=== PATIENT | male | born 1955 | race Caucasian/White ===

== ENCOUNTER 2017-01-31 08:00 | Outpatient (CLI) | payer OTHER ==
[2017-01-31 10:13] LABS: BASOPHILS # (AUTO) 0.1 10^3/uL (0.0-0.1); BASOPHILS % (AUTO) 0.9 %; EOSINOPHILS # (AUTO) 0.1 10^3/uL (0.0-0.7); EOSINOPHILS % (AUTO) 2.3 %; HCT - HEMATOCRIT 42.2 % (42.0-52.0); HGB - HEMOGLOBIN 14.8 g/dL (14.0-18.0); LYMPHOCYTES # (AUTO) 2.2 10^3/uL (1.5-3.5); LYMPHOCYTES % (AUTO) 39.6 %; MEAN CORPUSCULAR HEMOGLOBIN 35.1 pg (27.0-31.0); MEAN CORPUSCULAR HGB CONC 35.2 g/dL (32.0-36.0); MEAN CORPUSCULAR VOLUME 99.8 fL (80.0-94.0); MONOCYTES # (AUTO) 0.5 10^3/uL (0.0-1.0); MONOCYTES % (AUTO) 9.6 %; NEUTROPHILS # (AUTO) 2.7 10^3/uL (1.5-6.6); NEUTROPHILS % (AUTO) 47.6 %; NUCLEATED RED BLOOD CELLS AUTO 0.1 /100WBC; RED BLOOD COUNT 4.22 10^6/uL (4.70-6.10); RED CELL DISTRIBUTION WIDTH 12.5 % (12.0-15.0); UNCORRECTED WHITE BLOOD COUNT 5.6 x10^3/uL; WHITE BLOOD COUNT 5.6 x10^3/uL (4.8-10.8)
== END 2017-01-31 23:59 | disposition home or self-care (01) ==
LOC: LAB 08:00
PROVIDERS: ATTEND Registered Nurse
DX: Z01.812 Encounter for preprocedural laboratory examination (principal); K40.90 Unilateral inguinal hernia, without obstruction or gangrene, not specified as recurrent
CPT/HCPCS: 36415; 85025; 85730

== ENCOUNTER 2017-02-04 11:07 | Day surgery (SDC) | payer OTHER ==
[~2017-02-04 11:07] MED LIST: ceFAZolin 2 GM/50 ML 50 ML IV ONE
[2017-02-04] MEDS ORDERED: LACTATED RINGERS 1,000 ML IV ONE ×2 (11:27→15:44)
[2017-02-04] MEDS ORDERED: BUPIVACAINE 0.5% PF 30 ML VIAL INFIL ONE ×2 (15:43)
[2017-02-04] MEDS ORDERED: KETOROLAC 30 MG/ML VIAL IVP ONE (16:00)
[2017-02-04] MEDS ORDERED: PROPOFOL 200 MG/20 ML VIAL IVP ONE (16:00)
[2017-02-04] MEDS ORDERED: ONDANSETRON 4 MG/2 ML VIAL IVP ONE (16:00)
[2017-02-04] MEDS ORDERED: MIDAZOLAM 2 MG/2 ML VIAL IVP ONE (16:00)
[2017-02-04] MEDS ORDERED: DEXAMETHASONE 4 MG/ML VIAL IVP ONE (16:00)
[2017-02-04] MEDS ORDERED: LIDOCAINE-MPF 2% 5 ML VIAL IM ONE (16:00)
[2017-02-04] MEDS ORDERED: ACETAMINOPHEN 1,000 MG/100 ML VIAL IV ONE (16:00)
[2017-02-04] MEDS ORDERED: fentaNYL 100 MCG/2 ML VIAL IVP ONE (16:00)
== END 2017-02-04 11:08 | disposition home or self-care (01) ==
PROC: 0YU50JZ Supplement Right Inguinal Region with Synthetic Substitute, Open Approach (ICD-10-PCS; principal; 2017-02-04 12:30)
DX: K40.90 Unilateral inguinal hernia, without obstruction or gangrene, not specified as recurrent (principal); I11.0 Hypertensive heart disease with heart failure; I50.9 Heart failure, unspecified; F17.210 Nicotine dependence, cigarettes, uncomplicated
CPT/HCPCS: 36415; 49505; 85025; 85730; C1781; J0131; J0690; J7120

== ENCOUNTER 2017-08-30 12:09 | Emergency (ER) | payer OTHER ==
[2017-08-30 12:22] VITALS: BP 150/99
[2017-08-30] MEDS ORDERED: DEXAMETHASONE 10 MG/ML VIAL PO STA (13:47)
--- NOTE | 2017-08-30 13:50 | ED Physician Documentation ---
PD HPI UPPER EXT INJURY - Stated complaint Stated Complaint: L ARM PX - Chief complaint Chief Complaint: Ext Problem - History obtained from History obtained from: Patient - History of Present Illness Location: Left, Elbow Type of injury: Fall Where injury occurred: Home Timing - onset: Yesterday Timing - duration: Days (1) Timing - details: Abrupt onset, Still present Improved by: Rest, Ice, Immobilization Worsened by: Moving, Palpating Associated symptoms: No: Weakness, Numbness, Tingling, Swelling Contributing factors: Anticoagulated Similar symptoms before: Has not had sx before Recently seen: Not recently seen - Additonal information Additional information: 62-year-old male with history of congestive heart failure on Pradaxa was getting out of his car yesterday when he slipped on the ice fell directly onto his buttocks and both of his elbows. He has some pain in his lower back that is consistent with his sciatica and he has been having trouble with this for the past 2 weeks and the back is now slightly more painful than usual. His most significant area of pain is the left elbow he has some restriction in the range of motion to it secondary to pain. The pain is mostly centered over the proximal ulna. Review of Systems Constitutional: denies: Fever Eyes: denies: Decreased vision Respiratory: denies: Cough GI: denies: Abdominal Pain, Nausea, Vomiting, Constipation, Diarrhea Musculoskeletal: reports: Back pain, Extremity pain, Joint pain, Joint swelling. denies: Neck pain PD PAST MEDICAL HISTORY - Past Medical History Past Medical History: Yes Cardiovascular: Congestive heart failure, Hypertension, Other Respiratory: None GI: None, GERD : Benign prostate hypertrophy, Kidney stones HEENT: None Psych: None Musculoskeletal: None Derm: None - Past Surgical History Past Surgical History: Yes General: Colonoscopy Ortho: Other Neuro: Other HEENT: Cataracts - Present Medications Home Medications: Ambulatory Orders Medication Instructions Recorded Confirmed Amitriptyline HCl 75 mg PO DAILY 01/31/17 08/30/17 Dabigatran Etexilate Mesylate 150 mg PO BID 01/31/17 08/30/17 [Pradaxa] Metoprolol Succinate 25 mg PO BID 01/31/17 08/30/17 Valsartan 40 mg PO BID 01/31/17 08/30/17 Cyclobenzaprine [Flexeril] 10 mg PO .FEQ PRN 08/30/17 08/30/17 - Allergies Allergies/Adverse Reactions: Allergies Allergy/AdvReac Type Severity Reaction Status Date / Time lisinopril AdvReac Itching Verified 08/30/17 12:22 - Social History Does the pt smoke?: Yes Smoking Status: Current every day smoker Does the pt drink ETOH?: Yes ETOH Use: Beer Does the pt have substance abuse?: No - Immunizations Immunizations are current?: No Immunizations: TDAP >10years/unknown - POLST Patient has POLST: No PD ED PE NORMAL - Vitals Vital signs reviewed: Yes (hypertensive ) - General General: Alert and oriented X 3, No acute distress, Well developed/nourished - HEENT HEENT: Atraumatic, PERRL, EOMI - Neck Neck: Supple, no meningeal sign - Respiratory Respiratory: No respiratory distress - Back Back: No CVA TTP, No spinal TTP, Other (There is some bilateral lower lumbar paraspinous muscle spasm and tenderness. ) - Derm Derm: Normal color, Warm and dry, No rash - Extremities Extremities: No deformity, Other (There is specific point tenderness to the left olecrenon. There is restricted ROM specifically with full flexion.Extension is with less pain and he is able to supinate and pronate without pain with the elbow extended and he has pain radiating down the radius with supination/pronation with the elbow flexed. ) - Neuro Neuro: No motor deficit, No sensory deficit Eye Opening: Spontaneous Motor: Obeys Commands Verbal: Oriented GCS Score: 15 - Psych Psych: Normal mood, Normal affect Results - Vitals Vitals: Vital Signs - 24 hr 08/30/17 12:20 Temperature 36.1 C L Heart Rate 76 Respiratory 18 Rate Blood Pressure 150/99 H O2 Saturation 100 Oxygen O2 Source Room air - Rads (name of study) Left elbow Radiology: Prelim report reviewed (Impression: 1. Normal alignment of the elbow without evident fracture lines. Small elbow joint effusion is noted. 2. Small occult fracture cannot be excluded given this finding.), EMP read indepedently, See rad report Procedures - Splint (location) l elbow Splint applied by: Tech Type of splint: Fiberglass, Posterior Other: Patient tolerated well, No complications, Neurovascular intact, Good alignment, Sling provided PD MEDICAL DECISION MAKING - ED course Complexity details: reviewed results, re-evaluated patient, considered differential, d/w patient ED course: 62-year-old male with a prior history ofAnd congestive heart failure who is on Pradaxa has had a fall onto his left elbow and buttocks. He is exacerbated his sciatica and has an anterior sail sign on his plain film. I suspect he has blood in the joint space restricting his range of motion and causing pain and we have placed him into a posterior splint and sling. I will ask him to follow- up with orthopedics. For his back we have administered dexamethasone 10 mg orally. Departure - Departure Disposition: 01 Home, Self Care Clinical Impression: Sprain of left elbow Qualifiers: Encounter type: initial encounter Qualified Code(s): S53.402A - Unspecified sprain of left elbow, initial encounter Sciatica Qualifiers: Laterality: right Qualified Code(s): M54.31 - Sciatica, right side Condition: Stable Instructions: ED Sprain Elbow, ED Sciatica Follow-Up: [facility] [Provider Group] Discharge Date/Time: 08/30/17 14:39
[2017-08-30] MEDS ORDERED: DEXAMETHASONE 10 MG/ML VIAL ONE (13:53)
[2017-08-30] MEDS ORDERED: TETANUS/DIPHTHERIA/PERTUSSIS 0.5 ML SYRINGE IM ONE (14:39)
--- NOTE | 2017-08-30 17:37 | XRAY Preliminary Report ---
Exam: XR ELBOW 3 VIEW LT IMPRESSION: 1. Normal alignment of the elbow without evident fracture lines. 2. Small elbow joint effusion is noted. Small occult fracture cannot be excluded given this finding. [facility] SITE ID: [id number]
--- NOTE | 2017-08-30 17:39 | XRAY Report ---
EXAM: LEFT ELBOW RADIOGRAPHY EXAM DATE: 08/30/2017 02:01 PM. CLINICAL HISTORY: Contusion swelling pain . COMPARISON: None. TECHNIQUE: 3 views. FINDINGS: Bones: No acute fracture lines or abnormal osseous lesions are seen. Joints: No subluxation. Small elbow joint effusion is evident. Soft Tissues: Mild soft tissue swelling at the elbow. IMPRESSION: 1. Normal alignment of the elbow without evident fracture lines. 2. Small elbow joint effusion is noted. Small occult fracture cannot be excluded given this finding. LUZ Referring Provider Line: [phone] SITE ID: [id number]
== END 2017-08-30 14:39 | disposition home or self-care (01) ==
LOC: ED 12:09
DX: S53.402A Unspecified sprain of left elbow, initial encounter (principal); W00.0XXA Fall on same level due to ice and snow, initial encounter; Y92.014 Private driveway to single-family (private) house as the place of occurrence of the external cause; M54.41 Lumbago with sciatica, right side; Z23 Encounter for immunization; I11.0 Hypertensive heart disease with heart failure; I50.9 Heart failure, unspecified; N40.0 Benign prostatic hyperplasia without lower urinary tract symptoms; K21.9 Gastro-esophageal reflux disease without esophagitis; F17.200 Nicotine dependence, unspecified, uncomplicated
CPT/HCPCS: 29105; 99283

== ENCOUNTER 2017-10-28 10:44 | Observation (INO) | payer OTHER ==
[2017-10-28] MEDS ORDERED: diltiaZEM INJ 5 MG/ML VIAL IVP STA ×2 (10:59→12:47)
[2017-10-28] MEDS ORDERED: SODIUM CHLORIDE 0.9% 1,000 ML IV ONE (10:59)
--- NOTE | 2017-10-28 11:03 | ED Physician Documentation ---
History of Present Illness - Stated complaint Stated Complaint: CHEST PX/DIZZY - Chief complaint Chief Complaint: Cardiac - Additonal information Additional information: hx from pt 62 male has a hx afib states he is usally in afib but rate controlled on B joan also on pradaxa for two days he has had palp (uncomfortable palp but no really CP) SO and feeling very weak and dizzy with two syncopal episodes did hit side of head - on pradaxa - denies MARADIAGA no focal numbness or weakness - just weak all over denies recent fever cough deneis abd pain NVD states compliant with meds no caffeine or decongestants etc [facility] no local PMD, has seen a clinical unit educator once at [place] but does not know her name Review of Systems Constitutional: reports: Fatigue. denies: Fever, Chills Throat: denies: Sore throat Cardiac: reports: Palpitations. denies: Chest pain / pressure Respiratory: reports: Dyspnea. denies: Cough GI: denies: Abdominal Pain, Nausea, Vomiting Musculoskeletal: denies: Neck pain Neurologic: reports: Generalized weakness, Syncope, Head injury. denies: Focal weakness, Numbness, Headache Endocrine: reports: Easy bruising / bleeding Immunocompromised: denies: Immunocompromised PD PAST MEDICAL HISTORY - Past Medical History Past Medical History: Yes Cardiovascular: Congestive heart failure, Hypertension, Other Respiratory: None GI: None, GERD : Benign prostate hypertrophy, Kidney stones HEENT: None Psych: None Musculoskeletal: None Derm: None - Past Surgical History Past Surgical History: Yes General: Colonoscopy Ortho: Other Neuro: Other HEENT: Cataracts - Present Medications Home Medications: Ambulatory Orders Medication Instructions Recorded Confirmed Amitriptyline HCl 75 mg PO DAILY 01/31/17 08/30/17 Dabigatran Etexilate Mesylate 150 mg PO BID 01/31/17 10/28/17 [Pradaxa] Metoprolol Succinate 25 mg PO BID 01/31/17 08/30/17 Valsartan 40 mg PO BID 01/31/17 08/30/17 Cyclobenzaprine [Flexeril] 10 mg PO .FEQ PRN 08/30/17 08/30/17 - Allergies Allergies/Adverse Reactions: Allergies Allergy/AdvReac Type Severity Reaction Status Date / Time lisinopril AdvReac Itching Verified 08/30/17 12:22 - Social History Does the pt smoke?: Yes Smoking Status: Current every day smoker Does the pt drink ETOH?: Yes Does the pt have substance abuse?: No - Immunizations Immunizations are current?: No Immunizations: TDAP >10years/unknown - POLST Patient has POLST: No PD ED PE NORMAL - Vitals Vital signs reviewed: Yes - General General: Alert and oriented X 3 - HEENT HEENT: Atraumatic, PERRL - Neck Neck: No bony TTP - Cardiac Cardiac: No: RRR (tachy) - Respiratory Respiratory: No respiratory distress, Clear bilaterally - Abdomen Abdomen: Soft, Non tender - Derm Derm: Normal color - Extremities Extremities: No edema, No calf tenderness / cord - Neuro Neuro: Alert and oriented X 3, transportation services representative 2-12 intact, No motor deficit, No sensory deficit, Normal speech Results - Vitals Vitals: Vital Signs - 24 hr 10/28/17 10/28/17 10/28/17 10:46 11:03 11:51 Heart Rate 130 H 107 H Respiratory 18 16 Rate Blood Pressure 109/77 104/87 H O2 Saturation 98 99 10/28/17 12:11 Heart Rate 119 H Respiratory 17 Rate Blood Pressure 118/85 H O2 Saturation 98 Oxygen O2 Source Room air - EKG (time done) 1048 Rate: Rate (enter#) (171) Rhythm: Atrial fibrillation Intervals: No: Normal FL Ischemia: Other (diffuse ST depresssion likely rate related) - Labs Labs: Laboratory Tests 10/28/17 10/28/17 10/28/17 10:50 10:50 10:50 WBC 8.1 RBC 4.87 Hgb 17.0 Hct 49.1 MCV 100.7 H MCH 34.8 H MCHC 34.6 RDW 12.4 Plt Count 203 MPV 8.2 Neut # 4.9 Lymph # 2.3 [place] # 0.8 Eos # 0.1 Baso # 0.0 Absolute Nucleated RBC 0.01 Nucleated RBC % 0.1 D-Dimer Sodium 137 Potassium 3.8 Chloride 98 L Carbon Dioxide 24 Anion Gap 15.0 H BUN 11 Creatinine 1.1 Estimated GFR (MDRD) 68 L Glucose 142 H Lactic Acid Calcium 9.4 Troponin I < 0.04 Influenza A (Rapid) Influenza B (Rapid) Influenza Types A,B Ag 10/28/17 10/28/17 10/28/17 10:50 11:33 11:35 WBC RBC Hgb Hct MCV MCH MCHC RDW Plt Count MPV Neut # Lymph # [place] # Eos # Baso # Absolute Nucleated RBC Nucleated RBC % D-Dimer < 200.0 L Sodium Potassium Chloride Carbon Dioxide Anion Gap BUN Creatinine Estimated GFR (MDRD) Glucose Lactic Acid 1.1 Calcium Troponin I Influenza A (Rapid) Negative Influenza B (Rapid) Negative Influenza Types A,B Ag - PD MEDICAL DECISION MAKING - ED course ED course: CTH neg EKG with diffuse ST depr likely rate related - trop so far neg cause of RVR unclear - denies caffein stimulants, neg d dimer, no infection, complaint with meds given RVR and syncope x 2 and needing dilt gtt for rate control in Er will admit Departure - Departure Disposition: ED Place in Observation Clinical Impression: Atrial fibrillation with RVR Syncope Qualifiers: Syncope type: unspecified Qualified Code(s): R55 - Syncope and collapse Dyspnea Qualifiers: Dyspnea type: unspecified Qualified Code(s): R06.00 - Dyspnea, unspecified Headache Qualifiers: Headache type: unspecified Headache chronicity pattern: acute headache Condition: Good
[2017-10-28 11:07] LABS: BASOPHILS % (AUTO) 0.5 %; EOSINOPHILS # (AUTO) 0.1 10^3/uL (0.0-0.7); EOSINOPHILS % (AUTO) 1.1 %; LYMPHOCYTES # (AUTO) 2.3 10^3/uL (1.5-3.5); LYMPHOCYTES % (AUTO) 28.5 %; MEAN CORPUSCULAR HEMOGLOBIN 34.8 pg (27.0-31.0); MEAN CORPUSCULAR HGB CONC 34.6 g/dL (32.0-36.0); MEAN CORPUSCULAR VOLUME 100.7 fL (80.0-94.0); MEAN PLATELET VOLUME 8.2 fL (7.4-11.4); MONOCYTES # (AUTO) 0.8 10^3/uL (0.0-1.0); MONOCYTES % (AUTO) 9.5 %; NEUTROPHILS # (AUTO) 4.9 10^3/uL (1.5-6.6); NEUTROPHILS % (AUTO) 60.4 %; PLT - PLATELET COUNT 203 10^3/uL (130-450); RED BLOOD COUNT 4.87 10^6/uL (4.70-6.10); RED CELL DISTRIBUTION WIDTH 12.4 % (12.0-15.0); WHITE BLOOD COUNT 8.1 x10^3/uL (4.8-10.8)
[2017-10-28 11:18] LABS: CALCIUM 9.4 mg/dL (8.5-10.3); CREATININE 1.1 mg/dL (0.6-1.2)
--- NOTE | 2017-10-28 11:39 | CT Report ---
EXAM: CT HEAD EXAM DATE: 10/28/2017 11:24 AM. CLINICAL HISTORY: Fall , head injury on pradaxa. COMPARISON: None. TECHNIQUE: Multiaxial CT images were obtained from the foramen magnum to the vertex. Reformats: Coron al. IV contrast: None. In accordance with CT protocol optimization, one or more of the following dose reduction techniques w ere utilized for this exam: automated exposure control, adjustment of mA and/or KV based on patient s ize, or use of iterative reconstructive technique. FINDINGS: Parenchyma: Parenchymal volume loss with periventricular regions of low-attenuation. No evidence of a n acute vascular insult or acute parenchymal hemorrhage. No midline shift. No mass effect. Extraaxial Spaces: Extra-axial spaces are prominent. No subdural or epidural collections identified. Ventricles: Normal in size and position. Sinuses and Orbits: Imaged paranasal sinuses, orbits, and mastoids show no significant abnormality. Bones: No evidence of fracture or calvarial defect. Other: Changes are seen from bilateral lens surgery. Vascular calcifications are noted. IMPRESSION: 1. No acute intracranial abnormality is identified. 2. Parenchymal volume loss and chronic white matter changes. 3. No acute fracture. [facility] Referring Provider Line: [phone] SITE ID: [id number]
--- NOTE | 2017-10-28 11:43 | XRAY Report ---
EXAM: CHEST RADIOGRAPHY EXAM DATE: 10/28/2017 11:15 AM. CLINICAL HISTORY: Ams. COMPARISON: None. TECHNIQUE: 1 view. FINDINGS: Lungs/Pleura: No focal opacities evident. No pleural effusion. No pneumothorax. Mediastinum: Within exam limitations, the cardiomediastinal contour is normal. Other: None. IMPRESSION: Normal single view chest for age. [facility] Referring Provider Line: [phone] SITE ID: [id number]
[2017-10-28] MEDS ORDERED: oxyCODONE 5 MG TABLET PO STA (11:52)
[2017-10-28] MEDS ORDERED: diltiaZEM INJ 125 MG in DEXTROSE 5% 100 ML IV STA (12:45)
[2017-10-28] MEDS ORDERED: diltiaZEM 30 MG TABLET PO SCH (14:49)
[2017-10-28] MEDS ORDERED: METOPROLOL 5 MG/5 ML VIAL IVP SCH (14:49)
[2017-10-28] MEDS ORDERED: ACETAMINOPHEN 325 MG TABLET PO PRN ×2 (14:51→15:56)
[2017-10-28] MEDS ORDERED: ONDANSETRON ODT 4 MG TABLET TL PRN ×2 (14:51→15:56)
[2017-10-28] MEDS ORDERED: SODIUM CHLORIDE FLUSH 0.9% 10 ML SYRINGE IVP PRN ×2 (14:51→15:56)
[2017-10-28] MEDS ORDERED: oxyCODONE 5 MG TABLET PO PRN (14:51)
[2017-10-28] MEDS ORDERED: ONDANSETRON 4 MG/2 ML VIAL IVP STA (15:32)
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
[2017-10-28] MEDS ORDERED: AMITRIPTYLINE HCL 75 MG PO SCH (21:00)
[2017-10-28] MEDS ORDERED: NON FORMULARY MED (Dabigatran Etexilate Mesylate [Pradaxa] 150 MG) PO SCH (21:00)
[2017-10-28] MEDS ORDERED: diltiaZEM CD 120 MG CAPSULE PO SCH ×2 (21:00)
[2017-10-28] MEDS ORDERED: METOPROLOL SUCCINATE 25 MG TABLET PO SCH ×2 (21:00)
[2017-10-28] MEDS ORDERED: AMITRIPTYLINE 25 MG TABLET PO SCH (21:00)
[2017-10-28] MEDS ORDERED: VALSARTAN 40 MG PO SCH (21:00)
[2017-10-28] MEDS: diltiaZEM CD 120 MG CAPSULE PO SCH (21:46)
[2017-10-28] MEDS: DABIGATRAN 75 MG CAPSULE PO SCH (21:47)
[2017-10-28] MEDS: METOPROLOL SUCCINATE 25 MG TABLET PO SCH (21:48)
[2017-10-28] MEDS: LOSARTAN 50 MG TABLET PO SCH (21:48)
[2017-10-28] MEDS: SODIUM CHLORIDE FLUSH 0.9% 10 ML SYRINGE IVP SCH (21:50)
[2017-10-28] MEDS ORDERED: CYCLOBENZAPRINE 10 MG TABLET PO PRN (22:00)
[2017-10-28] MEDS ORDERED: SODIUM CHLORIDE FLUSH 0.9% 10 ML SYRINGE IVP SCH (22:00)
[2017-10-28] MEDS ORDERED: CYCLOBENZAPRINE 10 MG TABLET PO SCH (22:00)
--- NOTE | 2017-10-29 08:05 | Discharge Plan ---
Discharge Plan Disposition: Home, Self Care Condition: Good Prescriptions: Metoprolol Succinate [Toprol Xl] 50 mg PO BID #60 tablet Diet: Cardiac Activity Restrictions: Activity as Tolerated Shower Restrictions: No Driving Restrictions: No Additional Instructions or Follow Up instructions: You were placed in observation because your atrial fibrillation, a known arrhythmia that you have, which became uncontrolled. Your heart rate was too fast and causing you to have headaches, shortness of breath and a purple nose. We were able to control your heart rate by adding a new medication called Cardizem. The combination of Cardizem and your usual metoprolol brought your heart rate down to a reasonable level. However, I would like to try just increasing your metoprolol for you to go home on. I would prefer that as opposed to you taking 2 medications to slow down your heart rate. An echocardiogram was done to reevaluate your heart. This is an ultrasound of your heart muscles and valves. The preliminary results were given to you before you left. However, please see your primary care provider in follow-up. I want your primary care provider to refer you to cardiology for your heart rate , and to get the formal final report of your echocardiogram. You already have a relationship with [facility] through the [place]. See if you can call them directly to set up an appointment. The number for the [facility] is [phone]. I would strongly recommend you stop drinking and smoking. These two things together are associated with dementia, stroke, heart disease, mouth cancer, esophageal cancer, lung cancer, colon cancer. The alcohol can also be contributing to heart muscle failure and the atrial fibrillation. No Smoking: If you smoke, Please STOP! Call for help. Follow-up with: Maday Higginbotham DO [Physician No Access] -
[2017-10-29] MEDS: SODIUM CHLORIDE FLUSH 0.9% 10 ML SYRINGE IVP SCH (08:06)
[2017-10-29] MEDS: diltiaZEM CD 120 MG CAPSULE PO SCH (08:27)
[2017-10-29] MEDS: DABIGATRAN 75 MG CAPSULE PO SCH (08:27)
[2017-10-29] MEDS: METOPROLOL SUCCINATE 25 MG TABLET PO SCH ×2 (08:28→11:20)
[2017-10-29] MEDS: LOSARTAN 50 MG TABLET PO SCH (08:28)
[2017-10-29] MEDS: POLYETHYLENE GLYCOL 3350 17 GM PACKET PO SCH ×2 (08:29→09:17)
[2017-10-29] MEDS ORDERED: POLYETHYLENE GLYCOL 3350 17 GM PACKET PO SCH (09:00)
[2017-10-29] MEDS ORDERED: DIGOXIN 125 MCG TABLET PO SCH (12:54)
[2017-10-29] MEDS: oxyCODONE 5 MG TABLET PO PRN ×2 (12:55→17:03)
[2017-10-29] MEDS ORDERED: METOPROLOL SUCCINATE 25 MG TABLET PO SCH (13:00)
--- NOTE | 2017-10-29 14:12 | XRAY Report ---
TWO VIEW RIGHT HAND: 10/29/2017 CLINICAL INDICATION: Fall, pain at base of first digit. FINDINGS: Frontal and lateral views of the right hand demonstrate a small avulsion fracture from the ulnar side base of the proximal phalanx of the thumb, compatible with a collateral ligament avulsion. No other fracture is identified. No radiopaque foreign body is seen in the soft tissues. IMPRESSION: ULNAR COLLATERAL LIGAMENT AVULSION FROM THE BASE OF THE PROXIMAL PHALANX OF THE RIGHT THUMB. TD: 10/29/2017 14:10
[2017-10-29 15:32] VITALS: BP 127/87
--- NOTE | 2017-11-04 16:46 | DISCHARGE SUMMARY ---
Physician: Elizabeth Sullivan MD DATE OF ADMISSION: 10/28/2017 DATE OF DISCHARGE: 10/29/2017 PRIMARY CARE PROVIDER: Maday Higginbotham DO, at [facility]. DISCHARGE DIAGNOSES 1. Chronic atrial fibrillation with rapid ventricular response. 2. Syncope. 3. Tobacco abuse. 4. Hypertension. 5. Chronic pain syndrome. 6. Avulsion fracture, right thumb. DISCHARGE MEDICATIONS 1. Elavil 75 mg q.p.m. 2. Flexeril 10 mg p.o. t.i.d. p.r.n. 3. Pradaxa 150 mg p.o. b.i.d. 4. Metoprolol XL 50 mg p.o. b.i.d. 5. Valsartan 40 mg p.o. daily. HOSPITAL COURSE: The patient is a 62-year-old man that was admitted for less than 24 hours. Detailed history and physical was dictated. Please refer to same. Essentially, he develops headaches and purple noses when his atrial fibrillation gets out of control. He has not seen a assistant engineer in the last few years that he has moved to [facility]. He started developing headaches in the weekend before admission. His nose started turning purple. When he tried to get up to the bathroom this morning, he passed out in the bathroom. Hitting the floor woke him up, and he was weak and dizzy, and then went to go lie down on the sofa. As he went to the sofa, he passed out again momentarily. He hurt his hand; 911 was called. The patient was felt to be in chronic atrial fibrillation with rapid ventricular response, causing near syncope. His echocardiogram showed an underlying rhythm of atrial fibrillation. Ejection fraction of 50% to 55%. His atrial sizes were normal. In the emergency room, he received diltiazem and was continued on his Pradaxa. Initially it was IV, and then he was started on an IV drip. Before leaving the emergency room, we were able to get his heart rate down using oral Cardizem and continuing his Toprol. He was transferred to observation status. Over the next day, we worked on controlling his rate with the calcium channel blockers and metoprolol. It was preferred that he stay on a single agent and, as such, his metoprolol was increased from 25 b.i.d. to 50 b.i.d. He was instructed to stop smoking. He has been smoking all of his life. High blood pressure was controlled with his metoprolol and valsartan. With his atrial fibrillation with RVR on the diltiazem drip, he did get as low as 105/72. By the day of discharge, he was 127/87. He has chronic pain and that remains unchanged for which he takes Elavil. Also noted was an avulsion fracture of the right thumb. When he had fallen that second time in the house, he fell on an outstretched hand. I ran the case by Dr. Florence, who was orthopedics outside salesperson. We ordered a wrist splint, keeping the thumb immobilized for the patient to go home on. Dr. Florence wants to see the patient in followup in the next week. Once we felt his rate was controlled enough, the patient was sent home. He has been instructed to follow up with his primary care provider, Dr. Maday Higginbotham. PHYSICAL EXAMINATION VITAL SIGNS: Discharge temperature was 36.5, discharge pulse was 64, blood pressure 127/87, respirations 18, and 99% on room air. HEENT: On admission, he did have quite a purple nose. That has resolved, but he still has the changes of acne rosacea and some violaceous subtly. His earlobes also turned slightly purple. NECK: Supple. No JVD with shotty adenopathy. LUNGS: Clear to auscultation and percussion. He has an irregular rate and rhythm that will slightly increase to the 90s and low 100s with walking in the room. ABDOMEN: Soft, nontender. He is overall a slender male who looks older than stated age with no increased respiratory effort when walking in the room. Over the short time he was in observation, he was able to eat all of his meals and get up to go to the bathroom without assist. He has the right wrist splint in place before discharge. I have told him to make sure that he sees his primary care provider, gets referred to Cardiology; if he has an increase in his rate, to make sure he talks to his primary care provider. cc: Maday Higginbotham MD TD: 11/04/2017 10:43
== END 2017-10-29 17:50 | disposition home or self-care (01) ==
LOC: ED 10:44 → OBS 14:51 → ED 15:43
PROVIDERS: ADMIT Specialist; ATTEND Specialist
DX: I48.2 Chronic atrial fibrillation (principal); I11.0 Hypertensive heart disease with heart failure; I50.20 Unspecified systolic (congestive) heart failure; R55 Syncope and collapse; G89.29 Other chronic pain; F17.210 Nicotine dependence, cigarettes, uncomplicated; S62.511A Displaced fracture of proximal phalanx of right thumb, initial encounter for closed fracture; R26.0 Ataxic gait; N40.1 Benign prostatic hyperplasia with lower urinary tract symptoms; N39.498 Other specified urinary incontinence; R35.0 Frequency of micturition; R39.15 Urgency of urination; H91.90 Unspecified hearing loss, unspecified ear; V49.88XS Car occupant (driver) (passenger) injured in other specified transport accidents, sequela; Z91.81 History of falling; Z79.899 Other long term (current) drug therapy; W18.30XA Fall on same level, unspecified, initial encounter; Y92.019 Unspecified place in single-family (private) house as the place of occurrence of the external cause; Z72.89 Other problems related to lifestyle; Z87.442 Personal history of urinary calculi; Z85.828 Personal history of other malignant neoplasm of skin
CPT/HCPCS: 36415; 70450; 71045; 73120; 80048; 83605; 84484; 85025; 85379; 87275; 87276; 93005; 93306; 96361; 96365; 96366; 96375; 96376; 99284; 99285; A9270; G0378; 96374

== ENCOUNTER 2019-03-01 12:56 | Outpatient (CLI) | payer OTHER ==
--- NOTE | 2019-03-01 13:47 | XRAY Report ---
Reason: PAIN IN RIGHT SHOULDER Procedure Date: 03/01/2019 Accession Number: [id number] / [id number] Procedure: XR - Shoulder 3 View RT CPT Code: FULL RESULT: EXAM: RIGHT SHOULDER RADIOGRAPHY EXAM DATE: 03/01/2019 01:16 PM. CLINICAL HISTORY: Right shoulder pain. COMPARISON: None. TECHNIQUE: 4 views. FINDINGS: Bones: Normal. No fracture or bone lesion. Joints: Mild right shoulder DJD changes are seen. Alignment is preserved. Soft tissues: The visualized hemithorax is unremarkable. No soft tissue swelling. IMPRESSION: No acute findings. RADIA
== END 2019-03-01 12:57 | disposition home or self-care (01) ==
LOC: DI 12:56
PROVIDERS: ATTEND Nurse Practitioner Family
DX: M25.511 Pain in right shoulder (principal)

== ENCOUNTER 2021-04-06 17:41 | Outpatient (CLI) | payer OTHER ==
--- NOTE | 2021-04-06 19:36 | CT Report ---
PROCEDURE: Low Dose Lung Cancer Screen INDICATIONS: NICOTINE DEPENDENCE TECHNIQUE: Noncontrast low-dose images were acquired from the pulmonary apices to the posterior costophrenic ang les. Multiplanar MIP reformats were then acquired. For radiation dose reduction, the following was used: automated exposure control, adjustment of mA and/or kV according to patient size. COMPARISON: Chest radiograph dated 10/28/2017. FINDINGS: Image quality: Excellent. Lungs and pleura: No discrete pulmonary nodule is identified. Biapical scarring is seen. Bibasilar s cattered atelectasis is also noted. No pleural effusion or pneumothorax. Central and peripheral airwa y is patent. Mediastinum: Heart size is normal. No pericardial effusion. No mediastinal adenopathy by size crit eria. Thoracic aorta and central pulmonary arteries are normal in size. Mild atherosclerotic calcif ications are noted in coronary vessels. Esophagus is normal in caliber. No hiatal hernia. Bones and chest wall: No suspicious bony lesions. No vertebral body compression fractures. No axil monica or supraclavicular adenopathy by size criteria. The thyroid is normal in size and there are no incidental findings. Abdomen: Visualized upper abdomen solid organs and bowel loops appear normal in the absence of contr ast. Nonobstructing 3 mm stone is seen in mid pole of right kidney. No hydronephrosis. IMPRESSION: 1. No discrete pulmonary nodule is seen. 2. No mediastinal or hilar lymphadenopathy. Mild coronary artery calcifications. Lung RADS category: 1, negative. Annual low-dose screening chest CT is recommended as follow-up. CLINICAL RECOMMENDATION STATEMENTS: In patients <35 years with an ITN detected on CT, MRI, or extrathyroidal ultrasound, the Committee re commends further evaluation with dedicated thyroid ultrasound if the nodule is ?1 cm and has no suspi cious imaging features, and if the patient has normal life expectancy. In patients ?35 years with an ITN detected on CT, MRI, or extrathyroidal ultrasound, the Committee re commends further evaluation with dedicated thyroid ultrasound if the nodule is ?1.5 cm and has no prince picious imaging features, and if the patient has normal life expectancy. (ACR, 2014) Reviewed by: Ilan Razo MD on 04/06/2021 7:34 PM PDT Approved by: Ilan Razo MD on 04/06/2021 7:34 PM PDT Station ID: [id number]
== END 2021-04-06 17:42 | disposition home or self-care (01) ==
LOC: DI 17:41
PROVIDERS: ATTEND Nurse Practitioner Family
DX: Z12.2 Encounter for screening for malignant neoplasm of respiratory organs (principal); I25.10 Atherosclerotic heart disease of native coronary artery without angina pectoris; F17.210 Nicotine dependence, cigarettes, uncomplicated

== ENCOUNTER 2022-11-21 14:56 | Outpatient (CLI) | payer OTHER | END 2022-11-21 14:57 | disposition home or self-care (01) | LOC: RT 14:56 | PROVIDERS: ATTEND Nurse Practitioner Family | DX: Z87.891 Personal history of nicotine dependence (principal) | CPT/HCPCS: 94010 ==

== ENCOUNTER 2023-01-14 07:43 | Outpatient (CLI) | payer OTHER ==
--- NOTE | 2023-01-14 09:07 | Ultrasound Report ---
PROCEDURE: Aorta Screening INDICATIONS: EX SMOKER TECHNIQUE: Real time scanning was performed of the aorta and iliac arteries, with image documentatio n. COMPARISON: CT abdomen pelvis 07/28/2017. FINDINGS: Aorta: Proximal aortic diameter measures 3.1 x 3.0 cm. Mid-aorta measures 2.4 x 2.7 cm. Distal aor tic diameter is 4.7 x 4.1 cm. Iliac arteries: Right common iliac artery measures 1.1 x 1.5 cm. Left common iliac artery measures 1.2 x 1.3 cm. IMPRESSION: Infrarenal abdominal aortic aneurysm measuring up to 4.7 cm. Reviewed by: Rafiq Martinez MD on 01/14/2023 9:06 AM PDT Approved by: Rafiq Martinez MD on 01/14/2023 9:06 AM PDT Station ID: [id number]
--- NOTE | 2023-01-15 14:22 | CT Report ---
PROCEDURE: Low Dose Lung Cancer Screen INDICATIONS: EX SMOKER TECHNIQUE: Noncontrast low-dose axial images were acquired from the pulmonary apices to the posterior costophren ic angles. Multiplanar MIP reformats were then reconstructed. For radiation dose reduction, the follo wing was used: automated exposure control, adjustment of mA and/or kV according to patient size. COMPARISON: Chest CT, 04/06/2021. FINDINGS: Image quality: Excellent. Lungs and pleura: No pleural effusions. No pneumothorax. No suspicious pulmonary nodules which requi re follow up. Mediastinum: Heart size is normal. No pericardial effusions. No mediastinal adenopathy by size criter ia. No large vessel abnormality. Chest wall and lower neck: Thyroid is unremarkable. No axillary or supraclavicular adenopathy by size . Bones: No aggressive osseous abnormality. Upper Abdomen: There is a 6 mm nonobstructive stone in right kidney. IMPRESSION: Lung RAD: 1 - Negative. Recommendation: Continue annual screening in 12 Months with LDCT Reviewed by: Deep Hawkins MD on 01/15/2023 2:20 PM PDT Approved by: Deep Hawkins MD on 01/15/2023 2:20 PM PDT Station ID: [id number]
== END 2023-01-14 07:44 | disposition home or self-care (01) ==
LOC: DI 07:43
PROVIDERS: ATTEND Nurse Practitioner Family
DX: Z12.2 Encounter for screening for malignant neoplasm of respiratory organs (principal); Z13.6 Encounter for screening for cardiovascular disorders; Z87.891 Personal history of nicotine dependence; I71.43 Infrarenal abdominal aortic aneurysm, without rupture

== ENCOUNTER 2023-05-05 14:44 | Emergency (ER) | payer OTHER ==
--- NOTE | 2023-05-05 14:56 | ED Physician Documentation ---
PD HPI Fall - Stated complaint Stated Complaint: FELL OF LADDER - Chief complaint Chief Complaint: Trauma Hd/Nk - History obtained from History obtained from: Patient - History of Present Illness Mechanism of injury: Lost balance (he says the ladder kicked out and slid, causing him to fall backward.) Fall distance: Other (He states that he was 5 feet off the ground on a ladder that tipped and he fell backwards onto his buttock and then back with abrupt pain in the lumbar area and cervical area. He denied any loss of consciousness. No notable headache. He is on a blood thinner.) Where injury occurred: Home Timing - onset: How many hours ago (1) Injury(ies) location: Neck, Back, Left Uppper Extremity (elbow area) Associated symptoms: Paresthesias (chronic numbness right foot nerve root from prior back disc problem. No new numbness.). No: LOC, AMS, Weakness Worsens with: Movement Contributing factors: Anticoagulated. No: Intoxicated Similar symptoms before: Has not had sx before Recently seen: Not recently seen Review of Systems Cardiac: denies: Chest pain / pressure GI: denies: Abdominal Pain, Vomiting Skin: reports: Abrasion (s) (left elbow/forearm) Musculoskeletal: reports: Neck pain, Back pain Neurologic: denies: Altered mental status PD PAST MEDICAL HISTORY - Past Medical History Cardiovascular: Congestive heart failure, Hypertension, Other Respiratory: None Endocrine/Autoimmune: None GI: None, GERD : Benign prostate hypertrophy, Kidney stones HEENT: None Psych: None Musculoskeletal: None Derm: None - Past Surgical History Past Surgical History: Yes General: Colonoscopy Ortho: Other Neuro: Other HEENT: Cataracts - Present Medications Home Medications: Ambulatory Orders Medication Instructions Recorded Confirmed Amitriptyline HCl 75 mg PO QPM 01/31/17 10/28/17 Dabigatran Etexilate Mesylate 150 mg PO BID 01/31/17 10/28/17 [Pradaxa] Valsartan 40 mg PO BID 01/31/17 10/28/17 Cyclobenzaprine [Flexeril] 10 mg PO TID PRN 08/30/17 10/28/17 Metoprolol Succinate [Toprol Xl] 50 mg PO BID #60 tablet 10/29/17 - Allergies Allergies/Adverse Reactions: Allergies Allergy/AdvReac Type Severity Reaction Status Date / Time lisinopril AdvReac Itching Verified 05/05/23 14:47 - Social History Does the pt smoke?: Yes Smoking Status: Current every day smoker Does the pt drink ETOH?: Yes Does the pt have substance abuse?: No - Immunizations Immunizations are current?: No Immunizations: TDAP >10years/unknown - POLST Patient has POLST: No PD ED PE NORMAL - Vitals Vital signs reviewed: Yes - General General: Alert and oriented X 3, Well developed/nourished - HEENT HEENT: Atraumatic - Neck Neck: Supple, no meningeal sign, Other (He is tender in the lateral lumbar and cervical areas. Also some tenderness to percussion in the midline lumbar. No gross deformity.) - Cardiac Cardiac: No murmur - Respiratory Respiratory: Clear bilaterally, Other (no chestwall tenderness noted. Mild tender thoracolumbar area tenderness. More tender in lumbar area midline and right side. No gross deformity. ) - Abdomen Abdomen: Soft, Non tender - Derm Derm: Normal color - Extremities Extremities: Other (Left elbow and forearm are tender but he is has full extension and rotation in the elbow. Low suspicion for fracture. No effusion. Some abrasions noted.) - Neuro Neuro: Alert and oriented X 3, No motor deficit, Normal speech, Other (He has some decrease sensation in the lateral right foot consistent with prior nerve and injury. He states this is baseline. No motor deficit.) Eye Opening: Spontaneous Motor: Obeys Commands Verbal: Oriented GCS Score: 15 Results - Vitals Vitals: Vital Signs - 24 hr 05/05/23 05/05/23 14:47 17:20 Temperature 36.5 C Heart Rate 77 61 Respiratory 22 16 Rate Blood Pressure 153/91 H 140/85 H O2 Saturation 99 100 Oxygen O2 Source Room air - Labs Labs: Laboratory Tests 05/05/23 05/05/23 05/05/23 15:26 15:26 15:26 WBC 4.5 L RBC 4.29 L Hgb 14.7 Hct 41.6 L MCV 97.0 H MCH 34.3 H MCHC 35.3 RDW 11.9 L Plt Count 203 MPV 10.2 Neut # (Auto) 2.6 Lymph # (Auto) 1.4 L [place] # (Auto) 0.4 Eos # (Auto) 0.0 Baso # (Auto) 0.0 Absolute Nucleated RBC 0.00 Nucleated RBC % 0.0 PT 13.0 H INR 1.2 APTT 59.0 H Sodium 135 Potassium 3.7 Chloride 103 Carbon Dioxide 23 Anion Gap 9.0 BUN 11 Creatinine 0.8 Estimated GFR (MDRD) 96 Glucose 97 Calcium 9.5 Total Bilirubin 1.7 H AST 26 ALT 27 Alkaline Phosphatase 67 Total Protein 7.7 Albumin 4.7 Globulin 3.0 Albumin/Globulin Ratio 1.6 Lipase 30 - Rads (name of study) cervical spine xray Relevant Findings:: Prelim report reviewed (no ractures noted), EMP independent interpretation of test lumbar spine xray Relevant Findings:: Prelim report reviewed, EMP independent interpretation of test (arthritic changes, no factures noted. ) PD Medical Decision Making - ED course Complexity details: reviewed results, d/w patient, other (The patient is on blood thinner and fell off a ladder 5 feet hurting his back and neck. No headache per se. Normal neuro conversant and ambulatory. However he does need evaluation for fractures as well as intracranial bleeding. Our CT scanner is broken.) ED course: Our CT scanner is broken the past few hoursa nd not likely to have repair today. The patient needs proper imaging to eval for ICH and fractures. I talked with the transfer center at [facility] and they asked that we try to find a closer facility. Our EMS medics were unable to transport by ground. [facility] was boarding multiple patients. I did talk with Dr. Franklin who is the attending emergency physician at [facility] who accepted transfer the patient to the ER for evaluation. The patient remained stable here. He was conversant and alert. He has a normal neuro exam (baseline right foot numbness in the L4 distribution from prior surgery is unchanged according to the patient). I did do plain radiography 2 view of the C-spine and L-spine without any notable acute fractures. Obviously this is inadequate for the degree of evaluation that we need but at least tells me he has a stable appearing spine at this point. We should be able to transfer port him to [facility] without needing to have strict back boarding. There was a delay in transfer waiting for EMS to have a rate available. This as an alternative to airlift which he did not seem injured critically to need that level of urgency. He does need further evaluation but remained stable. No chest or abdominal pain has developed. Subsequently EMS did arrive and was picked up the patient for ground ALS transfer to [facility] in stable condition. Departure - Departure Disposition: 02 Transfer Acute Care Hosp Clinical Impression: Fall from ladder, Anticoagulant long-term use, Acute lumbar back pain, Cervical strain, acute Condition: Stable Record reviewed to determine appropriate education?: Yes Forms: PCP List
[2023-05-05] MEDS ORDERED: HYDROmorphone 0.5 MG/0.5 ML SYRINGE IVP STA (15:09)
[2023-05-05 15:45] LABS: BASOPHILS % (AUTO) 0.4 %; EOSINOPHILS % (AUTO) 0.4 %; HCT - HEMATOCRIT 41.6 % (42.0-52.0); HGB - HEMOGLOBIN 14.7 g/dL (14.0-18.0); LYMPHOCYTES # (AUTO) 1.4 10^3/uL (1.5-3.5); LYMPHOCYTES % (AUTO) 31.7 %; MEAN CORPUSCULAR HEMOGLOBIN 34.3 pg (27.0-31.0); MEAN CORPUSCULAR HGB CONC 35.3 g/dL (32.0-36.0); MEAN PLATELET VOLUME 10.2 fL (7.4-11.4); MONOCYTES # (AUTO) 0.4 10^3/uL (0.0-1.0); MONOCYTES % (AUTO) 7.9 %; NEUTROPHILS # (AUTO) 2.6 10^3/uL (1.5-6.6); NEUTROPHILS % (AUTO) 58.9 %; PLT - PLATELET COUNT 203 10^3/uL (130-450); RED BLOOD COUNT 4.29 10^6/uL (4.70-6.10); RED CELL DISTRIBUTION WIDTH 11.9 % (12.0-15.0); WHITE BLOOD COUNT 4.5 x10^3/uL (4.8-10.8)
[2023-05-05 15:57] LABS: ALBUMIN 4.7 g/dL (3.2-5.5); ALBUMIN/GLOBULIN RATIO 1.6 (1.0-2.2); BILIRUBIN,TOTAL 1.7 mg/dL (0.2-1.0); CALCIUM 9.5 mg/dL (8.5-10.3); CREATININE 0.8 mg/dL (0.6-1.2); POTASSIUM 3.7 mmol/L (3.5-5.0); TOTAL PROTEIN 7.7 g/dL (6.7-8.2)
[2023-05-05 16:01] LABS: INR 1.2 (0.8-1.2)
--- NOTE | 2023-05-05 16:08 | XRAY Report ---
PROCEDURE: Cervical Spine 2 View INDICATIONS: fall from ladder TECHNIQUE: 4 view(s) of the cervical spine were acquired. COMPARISON: None. FINDINGS: Bones: No fractures or dislocations to the C7 level. The lateral masses of C1 are not well seen on the odontoid view. No suspicious bony lesions. Multilevel degenerative changes of the cervical spine with facet and uncovertebral arthropathy, anterior osteophytosis and disc height loss. Soft tissues: No prevertebral soft tissue swelling. IMPRESSION: No acute compression deformities. Multilevel degenerative changes of the cervical spine. Reviewed by: Jose Norris MD on 05/05/2023 4:07 PM PDT Approved by: Jose Norris MD on 05/05/2023 4:07 PM PDT Station ID: [id number]
--- NOTE | 2023-05-05 16:10 | XRAY Report ---
PROCEDURE: Lumbar Spine 2 View INDICATIONS: fall from ladder TECHNIQUE: 2 views of the lumbar spine were acquired. COMPARISON: None. FINDINGS: Bones: 5 [id number] vertebrae are present. Levocurvature lumbar spine. Multilevel degenerative changes with disc height loss, osteophytosis and facet arthropathy. No vertebral body compression fra ctures. No suspicious bony lesions. Soft tissues: Overlying bowel gas pattern is normal. No suspicious soft tissue calcifications. Ath erosclerotic vascular calcifications. IMPRESSION: No vertebral body compression deformities. Multilevel degenerative changes of the spine. Reviewed by: Jose Norris MD on 05/05/2023 4:08 PM PDT Approved by: Jose Norris MD on 05/05/2023 4:08 PM PDT Station ID: [id number]
[2023-05-05 17:26] VITALS: BP 140/85; O2SAT 100
== END 2023-05-05 18:41 | disposition short-term general hospital (02) ==
LOC: ED 14:44
DX: S39.012A Strain of muscle, fascia and tendon of lower back, initial encounter (principal); W11.XXXA Fall on and from ladder, initial encounter; I10 Essential (primary) hypertension; F17.200 Nicotine dependence, unspecified, uncomplicated; Z79.01 Long term (current) use of anticoagulants
CPT/HCPCS: 36415; 72040; 72100; 80053; 83690; 85025; 85610; 85730; 96374; 99285; J1170

== ENCOUNTER 2023-05-05 18:41 | Outpatient (CLI) | payer OTHER | END 2023-05-05 23:59 | disposition short-term general hospital (02) | LOC: EMS 18:41 | PROVIDERS: ATTEND Emergency Medicine | DX: M54.50 Low back pain, unspecified (principal); M54.2 Cervicalgia; S50.02XA Contusion of left elbow, initial encounter; W11.XXXA Fall on and from ladder, initial encounter; Y93.89 Activity, other specified; Y92.009 Unspecified place in unspecified non-institutional (private) residence as the place of occurrence of the external cause; Z79.01 Long term (current) use of anticoagulants | CPT/HCPCS: A0425; A0428 ==

== ENCOUNTER 2023-07-07 06:48 | Outpatient (CLI) | payer OTHER ==
--- NOTE | 2023-07-07 10:28 | Ultrasound Report ---
PROCEDURE: Retroperitoneal Limited INDICATIONS: AAA TECHNIQUE: Real time scanning was performed of the aorta and iliac arteries, with image documentatio n. COMPARISON: None. FINDINGS: Aorta: Proximal aortic diameter measures 3.1 x 3.1 cm. Mid-aorta measures 2.4 x 2.4 cm. Distal aor tic diameter is 4.6 x 4.8 cm, previously 4.7 x 4.1 cm. Iliac arteries: Right common iliac artery measures 1.2 x 1.2 cm. Left common iliac artery measures 1.2 x 1.3 cm. IMPRESSION: Interval growth of the infrarenal aortic aneurysm measuring 4.6 x 4.8 cm, previously 4.7 x 4.1 cm; gr owth rate is mildly worrisome, although differences in measuring technique could explain the differen ce. Recommend vascular surgery referral, if not already performed. Recommended intervals for follow-up imaging of ectatic aortas and abdominal aortic aneurysms, per ACR consensus guidelines: 2.5-2.9 cm: 5 years 3.0-3.4 cm: 3 years 3.5-3.9 cm: 2 years 4.0-4.4 cm: 1 year 4.5-4.9 cm: 6 months + endovascular referral 5.0-5.5 cm: 3-6 months + endovascular referral Reviewed by: Jonah Mcallister on 07/07/2023 10:27 AM PDT Approved by: Jonah Mcallister on 07/07/2023 10:27 AM PDT Station ID: [id number]
== END 2023-07-07 06:49 | disposition home or self-care (01) ==
LOC: DI 06:48
PROVIDERS: ATTEND Family Medicine
DX: I71.40 Abdominal aortic aneurysm, without rupture, unspecified (principal)

== ENCOUNTER 2023-10-10 16:00 | Outpatient (CLI) | payer OTHER ==
--- NOTE | 2023-10-10 17:26 | Ultrasound Report ---
PROCEDURE: Pelvic Limited INDICATIONS: GROIN MASS TECHNIQUE: Limited ultrasound of the region of interest of the area of pain of the patient's right lower quadran t was performed. COMPARISON: None. FINDINGS/IMPRESSION: Limited ultrasound of the region of interest of the patient's pain in the right lower quadrant shows no sonographically evident hernia. A mesh is noted. Reviewed by: Jake Gunderson MD on 10/10/2023 5:25 PM PST Approved by: Jake Gunderson MD on 10/10/2023 5:25 PM PST Station ID: [id number]
== END 2023-10-10 16:01 | disposition home or self-care (01) ==
LOC: DI 16:00
DX: R19.00 Intra-abdominal and pelvic swelling, mass and lump, unspecified site (principal)

== ENCOUNTER 2024-01-27 13:13 | Outpatient (CLI) | payer OTHER ==
--- NOTE | 2024-01-27 15:26 | CT Report ---
PROCEDURE: Abdomen/Pelvis WO INDICATIONS: AAA TECHNIQUE: A CT scan of the abdomen and pelvis was performed without the use of intravenous contrast. Images we re recorded and evaluated at appropriate window settings. Reformats: coronal and sagittal. For radiat ion dose reduction, the following was used: automated exposure control, adjustment of mA and/or kV ac cording to patient size. COMPARISON: Retroperitoneal ultrasound, 07/07/2023. Ultrasound abdomen, 10/29/2017. CT abdomen and pelv is , 07/28/2017. FINDINGS: Image quality: Diagnostic. Lower chest: Unremarkable. Small hiatal hernia. Liver: No contour-deforming mass. There are simple cysts in the left hepatic lobe. Gallbladder and biliary tree: No gallstones. No biliary dilation. Spleen: No splenomegaly. Pancreas: No pancreatic ductal dilation. Adrenals: No adrenal nodule. Kidneys and ureters: Bilateral nonobstructive renal calculi. No hydronephrosis. There is a 1.2 cm ulises rodense vertical cortical nodule in the left kidney, probably a hyperdense cyst. No solid mass. Stomach, bowel and peritoneum: No bowel distension. No pathologic free fluid. Mild diverticulosis wit hout diverticulitis. Lymph nodes: No central or retroperitoneal adenopathy. Vessels: There is an infrarenal abdominal aortic aneurysm measuring 4.8 x 4.6 cm Teaching size is 07/07/2023 but enlarged since 07/28/2017 (3.3 x 3.2 cm). Moderate atherosclerotic qamar cifications. Note is made of retroaortic left renal vein. PELVIS Reproductive organs: Unremarkable. Bladder: No wall thickness, accounting for underdistention. Pelvic lymph nodes: No pelvic adenopathy by size criteria. Bones: No aggressive osseous abnormality. Mild chronic compression fracture of L1. Moderate degenerat lashay disc and facet disease in lumbar spine. Other: No significant ventral or inguinal hernia. IMPRESSION: 1. A 4.8 x 4.6 mm infrarenal abdominal aortic aneurysm, stable in size since 07/07/2023. 2. Moderate atherosclerotic calcifications. 3. Retroaortic left renal vein. 4. Bilateral nonobstructive renal calculi. 5. A 1.2 cm hyperdense cortical nodule in left kidney. 6. Mild diverticulosis. No diverticulitis. 7. Mild chronic compression fracture of L1. Reviewed by: Deep Hawkins MD on 01/27/2024 3:25 PM PDT Approved by: Deep Hawkins MD on 01/27/2024 3:25 PM PDT Station ID: [id number]
== END 2024-01-27 13:14 | disposition home or self-care (01) ==
LOC: DI 13:13
DX: I71.43 Infrarenal abdominal aortic aneurysm, without rupture (principal); N20.0 Calculus of kidney; N28.89 Other specified disorders of kidney and ureter; K57.10 Diverticulosis of small intestine without perforation or abscess without bleeding; I70.90 Unspecified atherosclerosis; M48.56XA Collapsed vertebra, not elsewhere classified, lumbar region, initial encounter for fracture

== ENCOUNTER 2024-05-27 12:30 | Outpatient (CLI) | payer OTHER ==
[2024-05-27] MEDS ORDERED: iohexoL-300 100 ML VIAL ONE (12:50)
[2024-05-27 12:55] LABS: ALBUMIN 4.1 g/dL (3.2-5.5); ALBUMIN/GLOBULIN RATIO 1.8 (1.0-2.2); BILIRUBIN,TOTAL 0.6 mg/dL (0.2-1.0); CREATININE 0.8 mg/dL (0.6-1.3); POTASSIUM 4.3 mmol/L (3.5-4.5); TOTAL PROTEIN 6.4 g/dL (6.4-8.9)
--- NOTE | 2024-05-27 14:20 | CT Report ---
PROCEDURE: Angio Abdomen/Pelvis INDICATIONS: AAA CONTRAST: Omni 300 100ml TECHNIQUE: After the administration of intravenous contrast, 2.5 mm thick sections acquired from the diaphragm t o the symphysis. 10 mm maximum-intensity projection (MIP) reformats were then acquired. For radiati on dose reduction, the following was used: automated exposure control, adjustment of mA and/or kV ac cording to patient size. COMPARISON: 01/27/2024 FINDINGS: Image quality: Excellent. Aorta: Infrarenal aortic aneurysm measuring 6.1 x 4.4 cm, unchanged compared to 01/27/2024. No evidenc e of rupture. Mesenteric arteries: Celiac trunk, superior and inferior mesenteric arteries appear patent. Right pelvic arteries: Unremarkable. Left pelvic arteries: Unremarkable. Extravascular soft tissues: Lung bases are clear. Heart size is normal. Liver and spleen are elza l in size and enhancement. Gallbladder contains sludge. Biliary system is non dilated. Pancreas en hances normally. No adrenal nodules. Kidneys are normal in size and enhancement, without hydronephr osis. Non opacified bowel loops are normal in wall thickness and caliber. No free fluid or air. No retroperitoneal or mesenteric adenopathy. No ventral hernias. No suspicious bony lesions. No vert ebral body compression fractures. Colonic diverticulosis without evidence of diverticulitis. IMPRESSION: Stable infrarenal aortic aneurysm measuring 6.1 x 4.4 cm using the axial plane, compared with 01/27/2024. Recommend vascular surgery referral, if not already performed. Reviewed by: Jonah Mcallister MD on 05/27/2024 2:19 PM PDT Approved by: Jonah Mcallister MD on 05/27/2024 2:19 PM PDT Station ID: [id number]
[2024-05-27] MEDS: iohexoL-300 100 ML VIAL IVP ONE (15:44)
== END 2024-05-27 12:31 | disposition home or self-care (01) ==
LOC: DI 12:30
PROVIDERS: ATTEND Nurse Practitioner Family
DX: I71.43 Infrarenal abdominal aortic aneurysm, without rupture (principal)
CPT/HCPCS: 36415; 74174; 80053; Q9967